=== PATIENT | female | born 1975 | race Caucasian/White ===

== ENCOUNTER 2017-08-06 19:08 | Emergency (ER) | payer OTHER, BC ==
[~2017-08-06] VITALS: Ht 182.9 cm; Wt 181.0 kg
[~2017-08-06 19:08] MED LIST: CLOP75TA35 PO; DULO-31 PO; HYDR200T84 PO; INSU100C10 SQ; LEVE10002 PO; METF500T PO; METO25TA6 PO; NABU500T2 PO; OMEP40CA37 PO; PREG150C PO; TRAZ-146 PO; ZOLP5TAB8 PO
[2017-08-06] MEDS ORDERED: BROM2.5T22 PO (20:38)
[2017-08-06] MEDS ORDERED: MELO-102 PO (20:38)
[2017-08-06] MEDS ORDERED: BROM2.5T18 PO (20:38)
[2017-08-06] MEDS ORDERED: aspirin 81mg tab.chew PO ONE (20:45)
[2017-08-06] MEDS ORDERED: normal saline 1000ML IV soln IVB ONE (20:45)
[2017-08-06] MEDS ORDERED: ondansetron/PF 4mg/2ml inj IV ONE (20:45)
[2017-08-06 21:28] LABS: BASOPHILS % (AUTO) 0.5 % (0-1); EOSINOPHILS # (AUTO) 0.2 X10'3 (0-0.9); HEMATOCRIT 40.1 % (35.0-45.0); HEMOGLOBIN 13.3 g/dl (12.0-16.0); LYMPHOCYTES # (AUTO) 2.7 X10'3 (1.1-4.8); LYMPHOCYTES % (AUTO) 35.5 % (21-51); MEAN CORPUSCULAR HEMOGLOBIN 24.2 PG (27.0-31.0); MEAN CORPUSCULAR HGB CONC 33.2 % (33.0-36.5); MEAN CORPUSCULAR VOLUME 72.8 FL (78-98); MEAN PLATELET VOLUME 8.9 FL (7.4-10.4); MONOCYTES # (AUTO) 0.6 X10'3 (0-0.9); MONOCYTES % (AUTO) 7.2 % (2-12); NEUTROPHILS # (AUTO) 4.2 X10'3 (1.8-7.7); NEUTROPHILS % (AUTO) 54.8 % (42-75); PLATELET COUNT 346 X10'3 (140-440); RED BLOOD COUNT 5.51 X10'6 (4.20-5.60); RED CELL DISTRIBUTION WIDTH 18.8 % (11.5-14.5); WHITE BLOOD COUNT 7.7 X10'3 (4.5-11.0)
[2017-08-06 21:38] LABS: PROTHROMBIN TIME 9.9 SECONDS (9.0-12.0)
[2017-08-06 21:44] LABS: ALANINE AMINOTRANSFERASE 63 U/L (12-78); ALBUMIN 3.8 G/DL (3.4-5.0); ALKALINE PHOSPHATASE 194 IU/L (46-116); ANION GAP 11 (8-16); ASPARTATE AMINO TRANSFERASE 55 U/L (10-37); BILIRUBIN,TOTAL 0.4 MG/DL (0.1-1.0); BLOOD UREA NITROGEN 7 MG/DL (7-18); BUN/CREATININE RATIO 7.7 (6.6-38.0); CALCIUM 9.1 MG/DL (8.5-10.1); CHLORIDE 98 MMOL/L (99-107); CREATININE 0.91 MG/DL (0.40-0.90); GLUCOSE 404 MG/DL (70-104); MAGNESIUM 1.9 MG/DL (1.5-2.4); POTASSIUM 4.4 MMOL/L (3.5-5.1); SODIUM 137 MMOL/L (135-145); TOTAL CARBON DIOXIDE 28.4 MMOL/L (24-32); TOTAL PROTEIN 7.8 G/DL (6.4-8.2); eGFR 67 ML/MIN
[2017-08-06 23:04] VITALS: BP 134/77
== END 2017-08-06 23:05 | disposition home or self-care (01) ==
LOC: ER 19:09
DX: J06.9 Acute upper respiratory infection, unspecified (principal); R07.9 Chest pain, unspecified; R73.9 Hyperglycemia, unspecified; G43.909 Migraine, unspecified, not intractable, without status migrainosus; I10 Essential (primary) hypertension; E66.01 Morbid (severe) obesity due to excess calories; Z99.2 Dependence on renal dialysis; Z88.0 Allergy status to penicillin; Z88.1 Allergy status to other antibiotic agents; Z88.2 Allergy status to sulfonamides; Z88.5 Allergy status to narcotic agent
CPT/HCPCS: 36415; 71046; 80053; 83735; 84484; 85025; 85610; 93005; 96361; 96374; 99285; J2405; J7030

== ENCOUNTER 2017-08-28 18:53 | Emergency (ER) | payer OTHER, BC ==
[~2017-08-28] VITALS: Ht 182.9 cm; Wt 180.9 kg
[~2017-08-28 18:53] MED LIST changes: +BROM2.5T18 PO; +BROM2.5T22 PO; +MELO-102 PO; -NABU500T2 PO
[2017-08-28] MEDS ORDERED: fentaNYL/PF 50MCG/1 ML 2ML syringe IV ONE ×2 (19:10→20:00)
[2017-08-28] MEDS ORDERED: proCHLORperazine 10 MG/2 ml inj IV ONE (19:10)
[2017-08-28] MEDS ORDERED: LORazepam 2 mg/ml vial IV ONE (19:10)
[2017-08-28 19:28] LABS: BASOPHILS # (AUTO) 0.1 X10'3 (0-0.2); BASOPHILS % (AUTO) 0.7 % (0-1); EOSINOPHILS # (AUTO) 0.2 X10'3 (0-0.9); EOSINOPHILS % (AUTO) 2.1 % (0-6); HEMATOCRIT 40.7 % (35.0-45.0); HEMOGLOBIN 13.4 g/dl (12.0-16.0); LYMPHOCYTES # (AUTO) 2.6 X10'3 (1.1-4.8); LYMPHOCYTES % (AUTO) 30.4 % (21-51); MEAN CORPUSCULAR HEMOGLOBIN 23.9 PG (27.0-31.0); MEAN CORPUSCULAR HGB CONC 32.9 % (33.0-36.5); MEAN CORPUSCULAR VOLUME 72.7 FL (78-98); MEAN PLATELET VOLUME 8.9 FL (7.4-10.4); MONOCYTES # (AUTO) 0.5 X10'3 (0-0.9); MONOCYTES % (AUTO) 5.9 % (2-12); NEUTROPHILS # (AUTO) 5.2 X10'3 (1.8-7.7); NEUTROPHILS % (AUTO) 60.9 % (42-75); PLATELET COUNT 329 X10'3 (140-440); RED CELL DISTRIBUTION WIDTH 18.2 % (11.5-14.5); WHITE BLOOD COUNT 8.5 X10'3 (4.5-11.0)
[2017-08-28 19:38] LABS: INR 0.9 INR; PARTIAL THROMBOPLASTIN TIME 25 SECONDS (22-32); PROTHROMBIN TIME 9.8 SECONDS (9.0-12.0)
[2017-08-28] MEDS ORDERED: dexamethasone sod phosphate 10mg/ml inj IM STA (19:45)
[2017-08-28 19:46] LABS: ALANINE AMINOTRANSFERASE 62 U/L (12-78); ALBUMIN 3.3 G/DL (3.4-5.0); ALBUMIN/GLOBULIN RATIO 0.8 (1.1-1.5); ALKALINE PHOSPHATASE 184 IU/L (46-116); ANION GAP 14 (8-16); ASPARTATE AMINO TRANSFERASE 49 U/L (10-37); BILIRUBIN,TOTAL 0.4 MG/DL (0.1-1.0); BLOOD UREA NITROGEN 14 MG/DL (7-18); BUN/CREATININE RATIO 18.4 (6.6-38.0); CALCIUM 8.5 MG/DL (8.5-10.1); CHLORIDE 103 MMOL/L (99-107); CREATININE 0.76 MG/DL (0.40-0.90); GLUCOSE 310 MG/DL (70-104); SODIUM 139 MMOL/L (135-145); TOTAL CARBON DIOXIDE 21.8 MMOL/L (24-32); TOTAL PROTEIN 7.2 G/DL (6.4-8.2); TROPONIN I < 0.04 NG/ML (0.0-0.05); eGFR 83 ML/MIN
[2017-08-28 20:19] VITALS: BP 150/95
== END 2017-08-28 20:43 | disposition home or self-care (01) ==
LOC: ER 18:53
DX: G43.909 Migraine, unspecified, not intractable, without status migrainosus (principal); I10 Essential (primary) hypertension; E11.9 Type 2 diabetes mellitus without complications; Z98.890 Other specified postprocedural states; Z88.5 Allergy status to narcotic agent; Z88.0 Allergy status to penicillin; Z79.4 Long term (current) use of insulin
CPT/HCPCS: 36415; 70450; 71045; 80053; 82948; 84484; 85025; 85610; 85730; 93005; 96372; 96374; 96375; 96376; 99285; J0780; J1100; J2060; J3010

== ENCOUNTER 2017-11-05 22:12 | Emergency (ER) | payer BC, OTHER ==
[~2017-11-05] VITALS: Ht 182.9 cm; Wt 185.0 kg
[2017-11-05] MEDS ORDERED: cloNIDine 0.1 mg tablet PO ONE (23:35)
[2017-11-05 23:42] VITALS: BP 114/79
[2017-11-06] MEDS ORDERED: cloNIDine 0.1 mg tablet PO SCH (08:00)
== END 2017-11-06 00:38 | disposition home or self-care (01) ==
LOC: ER 22:12
DX: I10 Essential (primary) hypertension (principal); R04.0 Epistaxis; G43.909 Migraine, unspecified, not intractable, without status migrainosus; E11.9 Type 2 diabetes mellitus without complications; Z90.49 Acquired absence of other specified parts of digestive tract; Z88.0 Allergy status to penicillin; Z88.2 Allergy status to sulfonamides; Z88.5 Allergy status to narcotic agent; Z88.1 Allergy status to other antibiotic agents; Z79.84 Long term (current) use of oral hypoglycemic drugs; Z79.4 Long term (current) use of insulin; Z86.73 Personal history of transient ischemic attack (TIA), and cerebral infarction without residual deficits; Z99.2 Dependence on renal dialysis
CPT/HCPCS: 99283

== ENCOUNTER 2018-06-10 15:44 | Emergency (ER) | payer BC, OTHER ==
[~2018-06-10] VITALS: Ht 182.9 cm; Wt 190.0 kg
[~2018-06-10 15:44] MED LIST changes: -TRAZ-146 PO; +TRAZ-219 PO
[2018-06-10 15:51] VITALS: BP 145/88
[2018-06-10 16:15] LABS: BASOPHILS # (AUTO) 0.1 X10'3 (0-0.2); BASOPHILS % (AUTO) 0.6 % (0-1); EOSINOPHILS # (AUTO) 0.2 X10'3 (0-0.9); EOSINOPHILS % (AUTO) 2.9 % (0-6); HEMATOCRIT 39.5 % (35.0-45.0); HEMOGLOBIN 12.5 g/dl (12.0-16.0); LYMPHOCYTES # (AUTO) 2.1 X10'3 (1.1-4.8); LYMPHOCYTES % (AUTO) 25.1 % (21-51); MEAN CORPUSCULAR HEMOGLOBIN 22.5 PG (27.0-31.0); MEAN CORPUSCULAR HGB CONC 31.6 % (33.0-36.5); MEAN CORPUSCULAR VOLUME 71.1 FL (78-98); MEAN PLATELET VOLUME 8.5 FL (7.4-10.4); MONOCYTES # (AUTO) 0.5 X10'3 (0-0.9); MONOCYTES % (AUTO) 5.5 % (2-12); NEUTROPHILS # (AUTO) 5.6 X10'3 (1.8-7.7); NEUTROPHILS % (AUTO) 65.9 % (42-75); PLATELET COUNT 367 X10'3 (140-440); RED BLOOD COUNT 5.56 X10'6 (4.20-5.60); RED CELL DISTRIBUTION WIDTH 17.7 % (11.5-14.5); WHITE BLOOD COUNT 8.4 X10'3 (4.5-11.0)
[2018-06-10 16:31] LABS: ALANINE AMINOTRANSFERASE 55 U/L (12-78); ALBUMIN 3.3 G/DL (3.4-5.0); ALBUMIN/GLOBULIN RATIO 0.9 (1.1-1.5); ALKALINE PHOSPHATASE 159 IU/L (46-116); ANION GAP 7 (8-16); ASPARTATE AMINO TRANSFERASE 44 U/L (10-37); BILIRUBIN,TOTAL 0.3 MG/DL (0.1-1.0); BLOOD UREA NITROGEN 10 MG/DL (7-18); BUN/CREATININE RATIO 11.1 (6.6-38.0); CALCIUM 8.6 MG/DL (8.5-10.1); CHLORIDE 98 MMOL/L (99-107); GLUCOSE 418 MG/DL (70-104); POTASSIUM 4.4 MMOL/L (3.5-5.1); SODIUM 135 MMOL/L (135-145); TOTAL CARBON DIOXIDE 30.3 MMOL/L (24-32); TOTAL PROTEIN 7.1 G/DL (6.4-8.2); eGFR 68 ML/MIN
[2018-06-10 16:35] LABS: INR 0.9 INR; PARTIAL THROMBOPLASTIN TIME 24 SECONDS (22-32); PROTHROMBIN TIME 9.6 SECONDS (9.0-12.0)
[2018-06-10] MEDS ORDERED: FLUC150T66 PO (16:48)
[2018-06-10 16:53] LABS: CLARITY,URINE SLIGHTLY CLOUDY (Clear); COLOR,URINE YELLOW (Yellow); GLUCOSE, URINE >=1000 mg/dl (Neg); KETONES,URINE NEGATIVE (Neg); LEUKOCYTE ESTERASE ,URINE SMALL (Neg); NITRITES, URINE NEGATIVE (Neg); OCCULT BLOOD,URINE MODERATE (Neg); PH,URINE 5.5 (4.8-8.0); PROTEIN,URINE NEGATIVE (Neg); UROBILINOGEN,URINE 0.2 E.U/dL (0.2-1.0)
[2018-06-10 16:55] LABS: UA COLLECTION TYPE CLN CATCH MIDSTREAM
[2018-06-10] MEDS ORDERED: normal saline 1000ML IV soln IVB ONE (17:00)
[2018-06-10 17:04] LABS: BACTERIA,URINE 2+ /HPF (Neg); MUCUS STRANDS FEW /LPF (Neg); SQUAMOUS EPITHELIAL CELL,UR MODERATE /LPF (FEW); WBC CLUMPS,URINE MODERATE /HPF (NEGATIVE); WBC,URINE TNTC /HPF (0-4); YEAST FEW /HPF (NEGATIVE)
== END 2018-06-10 17:56 | disposition home or self-care (01) ==
LOC: ER 15:45
DX: B37.3 Candidiasis of vulva and vagina (principal); R10.2 Pelvic and perineal pain; I10 Essential (primary) hypertension; E11.9 Type 2 diabetes mellitus without complications; Z86.73 Personal history of transient ischemic attack (TIA), and cerebral infarction without residual deficits; Z86.69 Personal history of other diseases of the nervous system and sense organs; Z90.49 Acquired absence of other specified parts of digestive tract; Z98.890 Other specified postprocedural states; Z88.0 Allergy status to penicillin; Z88.2 Allergy status to sulfonamides; Z88.5 Allergy status to narcotic agent; Z88.1 Allergy status to other antibiotic agents; Z88.8 Allergy status to other drugs, medicaments and biological substances; Z79.01 Long term (current) use of anticoagulants; Z79.2 Long term (current) use of antibiotics; Z79.899 Other long term (current) drug therapy
CPT/HCPCS: 36415; 71045; 80053; 81001; 83605; 84145; 85025; 85610; 85730; 87040; 87088; 93005; 99284

== ENCOUNTER 2020-04-18 23:14 | Emergency (ER) | payer BC ==
[~2020-04-18] VITALS: Ht 182.9 cm; Wt 197.7 kg
[~2020-04-18 23:14] MED LIST changes: -BROM2.5T22 PO; +BROM2.5T5 PO; +OMEP40CA13 PO; -OMEP40CA37 PO; -TRAZ-219 PO; +TRAZ-256 PO
[2020-04-18] MEDS ORDERED: dexamethasone sod phosphate 10mg/ml inj IV STA (23:52)
[2020-04-18] MEDS ORDERED: ketorolac tromethamine 15mg/ml inj. IV ONE (23:55)
[2020-04-18] MEDS ORDERED: normal saline 1000ML IV soln IVB ONE (23:55)
[2020-04-18] MEDS ORDERED: SUMAtriptan succ. 6 MG/0.5ml vial SQ ONE (23:55)
[2020-04-18] MEDS ORDERED: proCHLORperazine 10 MG/2 ml inj IV ONE (23:55)
[2020-04-19] MEDS ORDERED: PROC5TAB56 PO (00:37)
[2020-04-19 01:31] VITALS: BP 166/93
== END 2020-04-19 01:32 | disposition home or self-care (01) ==
LOC: ER 23:15
DX: G43.909 Migraine, unspecified, not intractable, without status migrainosus (principal); I10 Essential (primary) hypertension; G47.30 Sleep apnea, unspecified; E11.9 Type 2 diabetes mellitus without complications; Z86.73 Personal history of transient ischemic attack (TIA), and cerebral infarction without residual deficits; Z86.69 Personal history of other diseases of the nervous system and sense organs; Z90.89 Acquired absence of other organs; Z90.49 Acquired absence of other specified parts of digestive tract; Z88.0 Allergy status to penicillin; Z88.2 Allergy status to sulfonamides; Z88.5 Allergy status to narcotic agent; Z88.8 Allergy status to other drugs, medicaments and biological substances; Z79.4 Long term (current) use of insulin; Z79.899 Other long term (current) drug therapy
CPT/HCPCS: 96361; 96372; 96374; 96375; 99284; J0780; J1100; J1885; J7030; J3030

== ENCOUNTER 2020-07-30 13:50 | Emergency (ER) | payer OTHER, BC ==
[~2020-07-30] VITALS: Ht 182.9 cm; Wt 195.4 kg
[~2020-07-30 13:50] MED LIST changes: +CLOP75TA34 PO; -CLOP75TA35 PO; +PROC5TAB56 PO
[2020-07-30] MEDS ORDERED: normal saline 1000ML IV soln IVB ONE (14:20)
[2020-07-30] MEDS ORDERED: normal saline 1000ml 1,000 ML IV ONE (14:20)
[2020-07-30] MEDS ORDERED: BAMLANIVIMAB INJECTION 700 MG in normal saline 250ml IV soln 250 ML IV ONE (14:20)
[2020-07-30 15:03] LABS: BASOPHILS % (AUTO) 0.4 % (0-1); EOSINOPHILS # (AUTO) 0.1 X10'3 (0-0.9); EOSINOPHILS % (AUTO) 1.3 % (0-6); HEMATOCRIT 46.1 % (35.0-45.0); HEMOGLOBIN 15.5 g/dl (12.0-16.0); LYMPHOCYTES # (AUTO) 1.4 X10'3 (1.1-4.8); MEAN CORPUSCULAR HEMOGLOBIN 28.5 PG (27.0-31.0); MEAN CORPUSCULAR HGB CONC 33.7 g/dL (33.0-36.5); MEAN CORPUSCULAR VOLUME 84.7 FL (78-98); MEAN PLATELET VOLUME 8.5 FL (7.4-10.4); MONOCYTES # (AUTO) 0.3 X10'3 (0-0.9); MONOCYTES % (AUTO) 7.1 % (2-12); NEUTROPHILS # (AUTO) 2.3 X10'3 (1.8-7.7); NEUTROPHILS % (AUTO) 57.2 % (42-75); PLATELET COUNT 205 X10'3 (140-440); RED BLOOD COUNT 5.44 X10'6 (4.20-5.60); RED CELL DISTRIBUTION WIDTH 14.5 % (11.5-14.5); WHITE BLOOD COUNT 4.1 X10'3 (4.5-11.0)
[2020-07-30 15:16] LABS: D-DIMER 0.23 MG/L FEU (0-0.50); PARTIAL THROMBOPLASTIN TIME 25 SECONDS (22-32)
--- NOTE | 2020-07-30 15:32 | NUR ---
[facility] faxed pt's covid test to [facility]. test is positive. dr trevinotified.
[2020-07-30 15:35] LABS: ALANINE AMINOTRANSFERASE 67 U/L (12-78); ALBUMIN 3.3 G/DL (3.4-5.0); ALBUMIN/GLOBULIN RATIO 0.8 (1.1-1.5); ALKALINE PHOSPHATASE 187 IU/L (46-116); ANION GAP 8 (8-16); ASPARTATE AMINO TRANSFERASE 63 U/L (10-37); BILIRUBIN,TOTAL 0.3 MG/DL (0.1-1.0); BLOOD UREA NITROGEN 10 MG/DL (7-18); BUN/CREATININE RATIO 14.3 (6.6-38.0); CALCIUM 8.3 MG/DL (8.5-10.1); CHLORIDE 99 MMOL/L (99-107); GLUCOSE 266 MG/DL (70-104); POTASSIUM 3.7 MMOL/L (3.5-5.1); SODIUM 139 MMOL/L (135-145); TOTAL CARBON DIOXIDE 31.8 MMOL/L (24-32); TOTAL PROTEIN 7.2 G/DL (6.4-8.2); eGFR 90 ML/MIN
[2020-07-30 15:42] LABS: MAGNESIUM 1.8 MG/DL (1.5-2.4)
--- NOTE | 2020-07-30 16:11 | NUR ---
Per pharmacy, use of bamlanivimab approved to be given to pt by Dr. Bowens, ID.
[2020-07-30] MEDS ORDERED: furosemide 20MG tablet PO ONE (18:40)
[2020-07-30 19:12] VITALS: BP 140/87
== END 2020-07-30 19:28 | disposition home or self-care (01) ==
LOC: ER 13:50
DX: U07.1 COVID-19 (principal); R06.00 Dyspnea, unspecified; R06.02 Shortness of breath; R07.89 Other chest pain; R50.9 Fever, unspecified; G43.909 Migraine, unspecified, not intractable, without status migrainosus; I10 Essential (primary) hypertension; E11.9 Type 2 diabetes mellitus without complications; Z86.73 Personal history of transient ischemic attack (TIA), and cerebral infarction without residual deficits; Z86.69 Personal history of other diseases of the nervous system and sense organs; Z90.89 Acquired absence of other organs; Z88.0 Allergy status to penicillin; Z88.2 Allergy status to sulfonamides; Z88.5 Allergy status to narcotic agent; Z88.6 Allergy status to analgesic agent; Z88.8 Allergy status to other drugs, medicaments and biological substances; Z79.4 Long term (current) use of insulin; Z79.899 Other long term (current) drug therapy
CPT/HCPCS: 36415; 71045; 80053; 83735; 83880; 84145; 84484; 85025; 85379; 85610; 85730; 86140; 93005; 96360; 99291; J7030; J7050; M0239; Q0239; 99285

== ENCOUNTER 2024-12-04 02:19 | Inpatient (IN) | payer OTHER, MEDICARE ==
[~2024-12-04] VITALS: Ht 185.4 cm; Wt 217.0 kg
[~2024-12-04 02:19] MED LIST changes: +ALBU8.5H17 IH; +ARIP5TAB12 PO; +ATOR20TA66 PO; +BELI200A SUBCUT; -BROM2.5T18 PO; -BROM2.5T5 PO; +BUDE10.2 INH; +CHLO118L3 MM; +CHOL10006 PO; +CLOP75TA33 PO; -CLOP75TA34 PO; -DULO-31 PO; +DULO30CA52 PO; +HYDR-3972 PO; +HYDR200T80 PO; -HYDR200T84 PO; -INSU100C10 SQ; +INSU100V49 SQ; -LEVE10002 PO; +LEVE100023 PO; +LORA2TAB96 PO; +LOSA25TA41 PO; -MELO-102 PO; -METF500T PO; +METO100T7 PO; -METO25TA6 PO; +OMEP20CA15 PO; -OMEP40CA13 PO; -PROC5TAB56 PO; +RIVA10TA PO; +SALI45SP PO; +SODI100G DT; +SUMA50TA PO; -TRAZ-256 PO; +ZOLP-679 PO; -ZOLP5TAB8 PO
--- NOTE | 2024-12-04 03:27 | Physician Documentation ---
History of Present Illness ~ Chief Complaint: Flank Pain Stated Complaint: UTI Time Seen by MD: 02:49 [facility] Mode of Arrival: EMS HPI Patient presents to the emergency room with left-sided abdominal pain and left flank pain sent from [facility] for evaluation of possible kidney stone. Pain started early yesterday morning. Pain is sharp in nature comes in waves. Pain has improved since receiving several rounds of pain medication that has now 5/10 compared to 10/10 earlier in the day. Urinalysis was negative for infection. Unfortunately he had they do not have urological services or CT scan that could accommodate patient's habitus therefore sent to our facility for evaluation. No prior incidents of similar symptoms Medication Reconciliation Allergies: Coded Allergies: Penicillins (Unverified Allergy, Unknown, 04/18/20) Sulfa (Sulfonamide Antibiotics) (Unverified Allergy, Unknown, 04/18/20) acetaminophen (Unverified Allergy, Unknown, 04/18/20) codeine (Unverified Allergy, Unknown, 04/18/20) erythromycin base (Unverified Allergy, Unknown, 04/18/20) morphine (Unverified Allergy, Unknown, "continuously throw up", 04/18/20) oxycodone (Unverified Allergy, Unknown, "continuously throw up", 06/06/16) propoxyphene napsylate (Unverified Allergy, Unknown, 08/10/14) Scheduled Atorvastatin Calcium (Atorvastatin Calcium), 1 TAB PO DAILY, (Reported) Azathioprine (Imuran), 1.5 TAB PO DAILY, (Reported) Belimumab (Benlysta), 1 SYR SUBCUT Q7D, (Reported) Buspirone HCl (Buspirone HCl), 1 TAB PO BID, (Reported) Cholecalciferol (Vitamin D), 1 CAP PO DAILY, (Reported) Clopidogrel Bisulfate (Clopidogrel), 1 TAB PO DAILY, (Reported) Duloxetine HCl (Duloxetine HCl), 2 CAP PO DAILY, (Reported) Gabapentin (Gabapentin), 3 CAP PO TID, (Reported) Hydroxychloroquine Sulfate (Plaquenil), 1 TAB PO Q12H, (Reported) Insulin Aspart (Insulin Aspart), 60 UNIT SQ AC, (Reported) Losartan Potassium (Losartan Potassium), 1 TAB PO DAILY, (Reported) Metformin HCl (Metformin HCl), 2 TAB PO Q12H, (Reported) Metoprolol Succinate* (Toprol Xl*), 1 TAB PO DAILY, (Reported) Omeprazole (Omeprazole), 2 CAP PO DAILY, (Reported) Quetiapine Fumarate* (Seroquel*), 1 TAB PO HS, (Reported) Scheduled PRN Albuterol Sulfate (Proair Hfa), 2 PUFFS IH Q6H PRN for SOB or wheezing, (Reported) Hydrocodone Bit/Acetaminophen (Hydrocodon-Acetaminophn 10-325 tablet), 1 TAB PO TID PRN for severe pain (7-10), (Reported) Sumatriptan Succinate* (Imitrex*), 1 TAB PO BID PRN for headache, (Reported) [concentreghuminsulin], 300 UNIT SQ TID PRN for Per Protocol, (Reported) [reg [id number]], 300 UNIT SQ TID PRN for Per Protocol, (Reported) Discontinued Medications Aripiprazole* (Abilify*), 1 TAB PO DAILY, (Reported) Discontinued Reason: patient no longer taking Budesonide/Formoterol Fumarate (Symbicort 160-4.5 Mcg Inhaler), 2 PUFFS INH Q12H, (Reported) Discontinued Reason: patient no longer taking Chlorhexidine Gluconate (Chlorhexidine Gluconate), 15 ML MM BID, (Reported) Discontinued Reason: patient no longer taking Duloxetine HCl (Duloxetine HCl), 3 CAP PO DAILY, (Reported) Discontinued Reason: Other Insulin Lispro (Insulin Lispro), 1 UNIT SQ SLIDING SCALE, (Reported) Discontinued Reason: patient no longer taking Levetiracetam (Levetiracetam), 1 TAB PO Q12H, (Reported) Discontinued Reason: patient no longer taking Lorazepam (Ativan), 1 TAB PO DAILY PRN for for anxiety/agitation, (Reported) Discontinued Reason: patient no longer taking Pregabalin (Lyrica), 1 CAP PO TID, (Reported) Discontinued Reason: patient no longer taking Rivaroxaban (Xarelto), 1 TAB PO DAILY Discontinued Reason: patient no longer taking Saliva Stimulant Agents Comb.3 (Biotene Moisturizing Mouth), 3 SPRAYS PO QID PRN for dry mouth, (Reported) Discontinued Reason: patient no longer taking Sodium Fluoride (Prevident 5000), 1 STRIP DT DAILY, (Reported) Discontinued Reason: patient no longer taking Zolpidem Tartrate (Ambien), 1 TAB PO HS PRN for sleep, (Reported) Discontinued Reason: patient no longer taking Past Medical History Past Medical History: CVA/TIA/Stroke, Headache, Migraine, Seizures, Hypertension, Sleep Apnea, *GI/HEPATOBILIARY*, Dialysis, Diabetes Past Surgical History: appendectomy, tonsillectomy Patient History: Patient reports no known family medical history. Alcohol Use: None Drug Use: none Lives with: Spouse Lives In: Home Occupation: employed Review of Systems ROS All review of systems negative except as per HPI Physical Exam Vital Signs: Temperature: 98.2, Source: Oral, Heart Rate: 78, Respiratory Rate: 19, BP: 161/88, Pulse Oximetry: 94, Weight: 217.000 Physical Exam General: Patient is awake, alert, oriented x4 in no acute distress, obese Head: Normocephalic and atraumatic. Eyes: Conjunctival normal. EOMI. PERRL. ENT: Mucous membranes moist. Neck: Supple, trachea is midline. Chest: Clear to auscultation bilaterally without rales, rhonchi, or wheezes. There is no accessory muscle use or retractions. Cardiac: RRR without murmurs, gallops, or rubs. Abd: Soft, nondistended, positive tenderness to palpation to right abdomen and left flank Progress Results/Orders Results/Orders Orders - VAUGHN LOPEZ MD Ct Abdomen Pelvis (12/04/24 04:06) Page Hospitalist (12/04/24 06:01) Fill Out Med Reconciliation (12/04/24 06:01) Completed Orders - VAUGHN LOPEZ MD Ct Abdomen Pelvis (12/04/24 04:06) Fentanyl/Pf (Fentanyl 0.05 Mg/Ml Syringe (12/04/24 03:30) Cbc/Diff (12/04/24 03:28) BMP (12/04/24 03:28) LA (12/04/24 03:28) Tamsulosin Capsule (Flomax Capsule) (12/04/24 04:40) Hgb A1c (12/04/24 05:15) Vital Signs 12/04/24 12/04/24 12/04/24 12/04/24 02:26 02:34 03:40 05:32 Temp 98.2 Pulse 81 78 84 Resp 16 19 15 19 B/P (MAP) 161/88 161/88 (112) 132/61 (84) Pulse Ox 95 94 96 12/04/24 12/04/24 06:35 08:11 Temp 98.2 Pulse 90 Resp 18 18 B/P (MAP) 141/79 (99) Pulse Ox 98 Laboratory Tests Test 12/04/24 05:15 White Blood Count 9.7 Red Blood Count 4.74 Hemoglobin 11.8 L Hematocrit 36.8 Mean Corpuscular Volume 77.5 L Mean Corpuscular Hemoglobin 24.8 L Mean Corpuscular Hemoglobin Concent 32.0 L Red Cell Distribution Width 16.6 H Platelet Count 209 Mean Platelet Volume 8.8 Neutrophils (%) (Auto) 66.0 Lymphocytes (%) (Auto) 21.4 Monocytes (%) (Auto) 10.6 Eosinophils (%) (Auto) 1.5 Basophils (%) (Auto) 0.5 Neutrophils # (Auto) 6.4 Lymphocytes # (Auto) 2.1 Monocytes # (Auto) 1.0 H Eosinophils # (Auto) 0.1 Basophils # (Auto) 0.1 CBC Comment Sodium Level 146 H Potassium Level 3.4 L Chloride Level 106 Carbon Dioxide Level 31.3 Anion Gap 9 Blood Urea Nitrogen 7 Creatinine 0.81 Estimated GFR/1.73 m2 75 BUN/Creatinine Ratio 8.6 L Glucose Level 69 L Hemoglobin A1c 8.7 H Lactic Acid Level 1.7 Calcium Level 9.0 Albumin 3.5 Chemistry Comments Medical Decision Making Findings Patient continues to have significant pain Addendum I received sign-out on this patient at shift change. Briefly the patient was transferred here for abdominal imaging. CT scan shows a kidney stone. Laboratory testing is otherwise unremarkable. The patient has intractable pain. She will be admitted to the hospitalist service for further care. Consult: I spoke to the internal medicine service, for admission in the hospital Lucho Parish MD Departure Impression: Primary Impression: Renal colic Additional Impression: Flank pain Referrals: NO PRIMARY CARE PROVIDER (PCP) Signature Scribe Signature: na Attestation: The note accurately reflects work and decisions made by me.Vaughn Lopez MD 12/05/24 00:26 VAUGHN Meade MD Dec 04, 2024 03:27 LUCHO PARISH MD Dec 04, 2024 19:04
[2024-12-04] MEDS: fentaNYL/PF 50MCG/1 ML 2ML syringe IV ONE (03:40)
--- NOTE | 2024-12-04 04:38 | RADIOLOGY REPORT ---
Exam: CT CT ABDOMEN PELVIS History: Flank pain Comparison Study: None Technique: Multidetector spiral CT of the abdomen and pelvis was performed from lung bases to pubic s ymphysis. Imaging was performed without intravenous contrast. Coronal and sagittal multiplanar reform ats were obtained from the axial data set by the technologist. Radiation Dose : 1. Abdomen/Pelvis: CTDIvol 36.9 mGy, DLP 2006.9 mGy*cm. Findings: Evaluation of vasculature and solid organs is limited due to lack of intravenous contrast use. Lung Bases: Lung bases are clear. Visualized portions of the heart and pericardium are unremarkable. Liver: The liver is normal in size. Nodular contour of the liver. Gallbladder and Biliary Tree: The gallbladder is unremarkable. No intrahepatic or extrahepatic biliar y ductal dilatation. Spleen: Unremarkable Pancreas: The pancreas is grossly unremarkable. Adrenal Glands: Unremarkable Kidneys: Mild left hydroureteronephrosis due to 3 mm proximal obstructive left ureteral calculus. No right intrarenal calculi. GI tract: The stomach is grossly normal in appearance. No evidence of small bowel wall thickening or abnormal dilatation to suggest bowel obstruction. Sigmoid colon diverticulosis without acute divertic ulitis. The appendix is not visualized and there are serpiginous radiodensities of the base of the ce cum suggesting prior appendectomy. Peritoneum/mesentery/retroperitoneum. No evidence of free intraperitoneal air. No ascites. No evidenc e of suspicious lymphadenopathy. Abdominal Wall: Unremarkable. Vasculature: The visualized abdominal aorta is normal in size and caliber. Evaluation of abdominal a nd pelvic vessels is limited due to lack of intravenous contrast. Urinary Bladder: Grossly unremarkable for degree of distention. Pelvic Organs: Unremarkable Musculoskeletal: No aggressive focal bony lesions, acute fractures or dislocation. Multilevel lumbar spondylosis. Soft tissues: Lower pelvic ventral abdominal hernia containing fat. IMPRESSION: 1. Mild left hydroureteronephrosis due to 3 mm proximal left ureteral obstructive calculus. 2. Nodular contour of the liver suspicious for cirrhosis.
[2024-12-04] MEDS: tamsulosin 0.4mg capsule PO ONE (04:40)
[2024-12-04 05:38] LABS: ALBUMIN 3.5 G/DL (3.4-5.0); ANION GAP 9 (8-16); BASOPHILS # (AUTO) 0.1 X10'3 (0-0.2); BASOPHILS % (AUTO) 0.5 % (0-1); BLOOD UREA NITROGEN 7 MG/DL (7-18); BUN/CREATININE RATIO 8.6 (10.0-20.0); CHLORIDE 106 MMOL/L (99-107); CREATININE 0.81 MG/DL (0.40-0.90); EOSINOPHILS # (AUTO) 0.1 X10'3 (0-0.9); EOSINOPHILS % (AUTO) 1.5 % (0-6); GLUCOSE 69 MG/DL (70-104); HEMATOCRIT 36.8 % (35.0-45.0); HEMOGLOBIN 11.8 g/dl (12.0-16.0); LYMPHOCYTES # (AUTO) 2.1 X10'3 (1.1-4.8); LYMPHOCYTES % (AUTO) 21.4 % (21-51); MEAN CORPUSCULAR HEMOGLOBIN 24.8 PG (27.0-31.0); MEAN CORPUSCULAR VOLUME 77.5 FL (78-98); MEAN PLATELET VOLUME 8.8 FL (7.4-10.4); MONOCYTES % (AUTO) 10.6 % (2-12); NEUTROPHILS # (AUTO) 6.4 X10'3 (1.8-7.7); PLATELET COUNT 209 X10'3 (140-440); POTASSIUM 3.4 MMOL/L (3.5-5.1); RED BLOOD COUNT 4.74 X10'6 (4.20-5.60); RED CELL DISTRIBUTION WIDTH 16.6 % (11.5-14.5); SODIUM 146 MMOL/L (135-145); TOTAL CARBON DIOXIDE 31.3 MMOL/L (24-32); WHITE BLOOD COUNT 9.7 X10'3 (4.5-11.0); eCRCL 99 ML/MIN; eGFR 75 ML/MIN
[2024-12-04] MEDS ORDERED: magnesium sulf-water 4G/100mL 100 ML IV PRN (08:10)
[2024-12-04] MEDS ORDERED: magnesium sulf-water 2g/50mL 50 ML IV PRN (08:10)
[2024-12-04] MEDS ORDERED: mag hydrox/Alum hydrox/simeth 30ml oral suspension PO PRN (08:10)
[2024-12-04] MEDS ORDERED: glucagon, human recombinant 1mg kit SUBCUT PRN (08:10)
[2024-12-04] MEDS ORDERED: acetaminophen 325mg tablet PO PRN (08:10)
[2024-12-04] MEDS ORDERED: DEXTROSE 15 GM of carb/4 tabs (each vial/BOTTLE has 4 tablets) PO PRN ×2 (08:10)
[2024-12-04] MEDS ORDERED: HYDROmorphone/PF 0.2 MG/ML SYRINGE IV PRN (08:10)
[2024-12-04] MEDS ORDERED: potassium Cl 40MEQ/1/2NS 520ml 520 ML IV PRN (08:10)
[2024-12-04] MEDS ORDERED: dextrose 50%-water 50ml dispensing syringe IV PRN ×2 (08:10)
[2024-12-04] MEDS ORDERED: potassium Cl 20 mEq SR tablet PO PRN (08:10)
[2024-12-04] MEDS ORDERED: magnesium hydroxide 30ml (MOM) UD suspension PO PRN (08:10)
[2024-12-04] MEDS: ondansetron/PF 4mg/2ml inj IV ONE (08:10)
[2024-12-04] MEDS: HYDROmorphone 1 mg/ml syringe IV ONE (08:11)
[2024-12-04 09:27] LABS: HEMOGLOBIN A1C 8.7 % (4.5-6.2)
[2024-12-04] MEDS: CefTRIAXone/D5W-Rocephin 1gm 50 ML IV ONE (09:28)
[2024-12-04] MEDS: normal saline 1000ml 1,000 ML IV SCH (09:28)
--- NOTE | 2024-12-04 09:50 | HISTORY AND PHYSICAL ---
History & Physical Providers to CC ~ History of Present Illness Reason for Admit\\Complaint: Intractable left flank pain with kidney stone and mild hydronephrosis History of Present Illness This is a 49-year-old female who was transferred from [facility] for further evaluation of left flank pain the patient has a BMI of 63.1 and did not fit into their CT scanner the patient presents to ED with hematuria x2 days and has had intermittent fevers with a T-max of 101.0. On CT scan is discovered that the patient has mild left hydroureter with a 3 mm proximal left ureteral stone. The patient currently has a normal white blood cell count urinalysis with a culture and sensitivity is ordered as well as Flomax and IV Rocephin as well as IV Dilaudid for pain management filter urine for stone analysis. Allergies: Coded Allergies: Penicillins (Unverified Allergy, Unknown, 04/18/20) Sulfa (Sulfonamide Antibiotics) (Unverified Allergy, Unknown, 04/18/20) acetaminophen (Unverified Allergy, Unknown, 04/18/20) codeine (Unverified Allergy, Unknown, 04/18/20) erythromycin base (Unverified Allergy, Unknown, 04/18/20) morphine (Unverified Allergy, Unknown, "continuously throw up", 04/18/20) oxycodone (Unverified Allergy, Unknown, "continuously throw up", 06/06/16) propoxyphene napsylate (Unverified Allergy, Unknown, 08/10/14) Home Medications Home Medications Active Xarelto (Rivaroxaban) 10 Mg Tablet 1 Tab PO DAILY Reported Ambien (Zolpidem Tartrate) 10 Mg Tablet 1 Tab PO HS PRN 30 Days Imitrex* (Sumatriptan Succinate) 50 Mg Tablet 1 Tab PO BID PRN give 1 tablet at onset of headache. May repeat in 2 hours as needed. Do not exceed 200mg/day total. Prevident 5000 (Sodium Fluoride) 100 Ml Gel..ml. 1 Strip DT DAILY Lyrica (Pregabalin) 150 Mg Capsule 1 Cap PO TID 30 Days Omeprazole 20 Mg Capsule.dr 2 Cap PO DAILY 30 Days Toprol Xl* (Metoprolol Succinate) 100 Mg Tab.sr.24h 1 Tab PO DAILY 30 Days Losartan Potassium 25 Mg Tablet 1 Tab PO DAILY 30 Days Ativan (Lorazepam) 2 Mg Tablet 1 Tab PO DAILY PRN 30 Days Levetiracetam 1,000 Mg Tablet 1 Tab PO Q12H 30 Days Insulin Lispro 100 Unit/1 Ml Vial 1 Unit SQ SLIDING SCALE Plaquenil (Hydroxychloroquine Sulfate) 200 Mg Tablet 0.5 Tab PO Q12H 30 Days Hydrocodon-Acetaminophn 10-325 (Hydrocodone Bit/Acetaminophen) 1 Each Tablet 1 Tab PO TID PRN 30 Days Duloxetine HCl 30 Mg Capsule.dr 3 Cap PO DAILY 30 Days Clopidogrel (Clopidogrel Bisulfate) 75 Mg Tablet 1 Tab PO DAILY 30 Days Vitamin D (Cholecalciferol) 1,000 Unit Capsule 1 Cap PO DAILY 30 Days Chlorhexidine Gluconate 118 Ml Liquid 15 Ml MM BID 2 Days Symbicort 160-4.5 Mcg Inhaler (Budesonide/Formoterol Fumarate) 10.2 Gm Hfa.aer.ad 2 Puffs INH Q12H Benlysta (Belimumab) 200 Mg/1 Ml Auto.injct 1 Syr SUBCUT Q7D 28 Days Atorvastatin Calcium 20 Mg Tablet 1 Tab PO DAILY 30 Days Biotene Moisturizing Mouth (Saliva Stimulant Agents Comb.3) 44.3 Ml Selma 3 Sprays PO QID PRN Abilify* (Aripiprazole) 5 Mg Tablet 1 Tab PO DAILY 30 Days Proair Hfa (Albuterol Sulfate) 1 Puff Inh 2 Puffs IH Q6H PRN Past Medical History Past Medical History Diabetes mellitus oab-sjajzxa-agixloham, lupus, hyperlipidemia, fibromyalgia, diverticulitis Past Surgical History Surgical History Comment Appendectomy, hysterectomy with bilateral salpingo-oophorectomy Family History Family History: FH: diabetes mellitus FATHER MOTHER Past Social History Social History Comment Patient denes history of smoking/ drinking alcohol nor any illicit drug use Full Code Status ROS ROS Except for positives in the HPI the rest of the 14 point review systems is negative Exam Vitals: Vital Signs Date Time Temp Pulse Resp B/P (MAP) Pulse Ox O2 Delivery O2 Flow Rate FiO2 12/04/24 08:56 98.2 100 18 146/65 (92) 91 General: Gen. No acute distress alert and oriented 4, morbidly obese Lungs clear to ascultation bilaterally, no wheezes rales or rhonchi appreciated Heart normal sinus rhythm no murmurs rubs or clicks noted Abdomen soft nontender bowel sounds are normoactive Lower extremities no clubbing cyanosis, nor edema appreciated bilaterally Diagnostic Data Last Recorded Lab Results: 12/04/24 0515 12/04/24 0515 Problems: (1) Hydronephrosis with urinary obstruction due to renal calculus Additional Plan # intractable left sided abdominal and flank pain Secondary to renal colic CT scan shows 3 mm obstructive calculus in the left proximal ureter with mild hydronephrosis UA with culture and sensitivity IV Rocephin Filter all urine for stone analysis IV Dilaudid for pain management # kbx-wgjdmxw-ldxnrobav diabetes mellitus On the hyper and hypoglycemic protocol # lupus Awaiting med reconciliation # hyperlipidemia Awaiting med reconciliation # mild microcytic anemia Iron studies # hypokalemia Potassium replacement protocol # DVT prophylaxis SCDs and SQ Lovenox I spent a total of 17 minutes on reviewing various resuscitative measures/ ACP with the patient at the time of admission. The patient has decided on full code status Date of Service: Dec 04, 2024 Billing Provider: HORACIO CANALES DO Common Visit Codes: [id number] INP/OBS CARE (HIGH) Secondary Visit Codes: [id number] CARE PLAN 30 MINUTES HORACIO CANALES DO Dec 04, 2024 09:50
[2024-12-04 11:00] LABS: BILIRUBIN,URINE NEGATIVE (Neg); CLARITY,URINE SLIGHTLY CLOUDY (Clear); COLOR,URINE YELLOW (Yellow); GLUCOSE, URINE NEGATIVE (Neg); KETONES,URINE NEGATIVE (Neg); LEUKOCYTE ESTERASE ,URINE NEGATIVE (Neg); NITRITES, URINE NEGATIVE (Neg); OCCULT BLOOD,URINE MODERATE (Neg); PROTEIN,URINE NEGATIVE (Neg)
[2024-12-04 11:06] LABS: UA COLLECTION TYPE CLN CATCH MIDSTREAM
[2024-12-04] MEDS ORDERED: QUET-1 PO (11:20)
[2024-12-04] MEDS ORDERED: [UNRECOGNIZED DRUG - OTHER] SQ (11:20)
[2024-12-04] MEDS ORDERED: GABA-530 PO (11:20)
[2024-12-04] MEDS ORDERED: METF-1203 PO (11:20)
[2024-12-04] MEDS ORDERED: [UNRECOGNIZED DRUG - OTHER] SQ (11:20)
[2024-12-04] MEDS ORDERED: DULO60CA65 PO (11:20)
[2024-12-04] MEDS ORDERED: AZAT50TA18 PO (11:20)
[2024-12-04] MEDS ORDERED: INSU100V46 SQ (11:20)
[2024-12-04] MEDS ORDERED: BUSP15TA7 PO (11:20)
[2024-12-04 11:30] VITALS: BP 152/83; PULSE 87; RESP 16; TEMP 98.7; O2SAT 97
[2024-12-04 11:34] LABS: BACTERIA,URINE 1+ /HPF (Neg); RBC,URINE 50-100 /HPF (0-2); RENAL CELLS, URINE FEW /HPF; SQUAMOUS EPITHELIAL CELL,UR MODERATE /LPF (FEW); TRANSITIONAL EPI CELLS,URINE FEW /HPF
[2024-12-04] MEDS: potassium Cl 20 mEq SR tablet PO PRN (12:09)
[2024-12-04] MEDS: INSULIN LISPRO 100 UNIT/ML INSULN.PEN MULTI-DOSE SQ SCH (12:25)
--- NOTE | 2024-12-04 13:24 | RADIOLOGY REPORT ---
EXAM: DI CHEST,SINGLE VIEW HISTORY: chest pain TECHNIQUE: 1 view of the chest COMPARISON: CHEST,SINGLE VIEW on DOS: 08/07/20 FINDINGS: LUNGS: Low lung volumes with crowding of the bronchovascular markings. Central pulmonary v ascular congestion. No pleural effusion, consolidation, or pneumothorax MEDIASTINUM: Unremarkable BONES: No acute osseous abnormality OTHER: None IMPRESSION: 1. Low lung volumes with crowding of the bronchovascular markings. 2. Overall, a degree of pulmonary vascular congestion. 3. No significant change from prior exam.
--- NOTE | 2024-12-04 13:52 | ELECTROCARDIOGRAPH REPORT ---
[facility] Test Date: 2024-12-04 Test Time: 12:41:21 Pat Name: ROBERT BAILEY Department: ORTHO/NEURO Room: ORTHO [facility] Gender: F Cashier Checker: : 1975 Requested By: HORACIO CANALES Order Number: [id number] Reading MD: Dr. CHINMAY Licea Measurements Intervals [place] Rate: 89 P: 42 CO: 172 QRS: -1 QRSD: 87 T: 49 QT: 384 QTc: 468 Interpretive Statements Sinus rhythm Baseline wander in lead(s) II,V1,V2,V3 Electronically Signed On 12-06-2024 19:14:[address] CHINMAY Licea Please click the below link to view image of tracing.
[2024-12-04] MEDS: HYDROmorphone inj. 0.5 MG/0.5 ML DISP.SYRIN IV PRN (16:06)
[2024-12-04] MEDS: pantoprazole 40mg Tablet.DR PO SCH (17:31)
[2024-12-04 18:00] VITALS: BP 184/89; PULSE 89; RESP 18; TEMP 98.2; O2SAT 97
[2024-12-04 19:30] VITALS: BP 157/77
[2024-12-04] MEDS: K and/or MAG REPLACEMENT MC SCH (20:00)
[2024-12-04] MEDS: enoxaparin 40mg/0.4ml syringe SQ SCH (20:20)
[2024-12-04] MEDS: tamsulosin 0.4mg capsule PO SCH (20:21)
[2024-12-04] MEDS: docusate sod 100mg capsule PO SCH (20:34)
[2024-12-04] MEDS: ondansetron/PF 4mg/2ml inj IV PRN (20:34)
[2024-12-04] MEDS: insulin glargine (Lantus) pen - multi-dose SQ SCH (20:42)
[2024-12-04 22:23] VITALS: O2SAT 100
[2024-12-04 22:25] VITALS: BP 143/98; PULSE 95; RESP 16; TEMP 98; O2SAT 99
[2024-12-04 23:33] VITALS: PULSE 104; RESP 18; O2SAT 95
[2024-12-05 05:05] LABS: BASOPHILS % (AUTO) 0.4 % (0-1); EOSINOPHILS # (AUTO) 0.1 X10'3 (0-0.9); EOSINOPHILS % (AUTO) 0.6 % (0-6); HEMATOCRIT 33.1 % (35.0-45.0); HEMOGLOBIN 10.6 g/dl (12.0-16.0); LYMPHOCYTES # (AUTO) 1.4 X10'3 (1.1-4.8); LYMPHOCYTES % (AUTO) 17.3 % (21-51); MEAN CORPUSCULAR HEMOGLOBIN 24.8 PG (27.0-31.0); MEAN CORPUSCULAR HGB CONC 32.1 g/dL (33.0-36.5); MEAN CORPUSCULAR VOLUME 77.1 FL (78-98); MEAN PLATELET VOLUME 8.2 FL (7.4-10.4); MONOCYTES % (AUTO) 11.8 % (2-12); NEUTROPHILS # (AUTO) 5.8 X10'3 (1.8-7.7); NEUTROPHILS % (AUTO) 69.9 % (42-75); PLATELET COUNT 153 X10'3 (140-440); RED CELL DISTRIBUTION WIDTH 16.5 % (11.5-14.5); WHITE BLOOD COUNT 8.3 X10'3 (4.5-11.0)
[2024-12-05 05:32] LABS: ALANINE AMINOTRANSFERASE 30 U/L (12-78); ALBUMIN 3.2 G/DL (3.4-5.0); ALKALINE PHOSPHATASE 131 IU/L (46-116); ANION GAP 6 (8-16); ASPARTATE AMINO TRANSFERASE 27 U/L (10-37); BILIRUBIN,TOTAL 0.9 MG/DL (0.1-1.0); BLOOD UREA NITROGEN 6 MG/DL (7-18); BUN/CREATININE RATIO 7.6 (10.0-20.0); CALCIUM 8.4 MG/DL (8.5-10.1); CHLORIDE 101 MMOL/L (99-107); CREATININE 0.79 MG/DL (0.40-0.90); GLUCOSE 285 MG/DL (70-104); MAGNESIUM 1.7 MG/DL (1.5-2.4); POTASSIUM 3.9 MMOL/L (3.5-5.1); SODIUM 137 MMOL/L (135-145); TOTAL PROTEIN 6.4 G/DL (6.4-8.2); eCRCL 101 ML/MIN; eGFR 77 ML/MIN
[2024-12-05 06:00] VITALS: BP 162/88; PULSE 117; RESP 16; TEMP 97.7; O2SAT 94
[2024-12-05] MEDS: CefTRIAXone/D5W-Rocephin 1gm 50 ML IV SCH (07:10)
--- NOTE | 2024-12-05 08:14 | PROGRESS NOTE ---
Daily Progress Note Providers to CC ~ Antibiotic Timeout Antibiotic Ordered?: Yes Objective Vital Signs Date Time Temp Pulse Resp B/P (MAP) Pulse Ox O2 Delivery O2 Flow Rate FiO2 12/05/24 07:09 16 12/05/24 06:00 97.7 117 162/88 (112) 94 Bi-pap/CPAP 12/04/24 23:33 5 40 Result Diagram: 12/05/2445012/05/24450 Problem\Assessment\Plan Problems/Diagnosis: (1) Hydronephrosis with urinary obstruction due to renal calculus 1) Hydronephrosis with urinary obstruction due to renal calculus Additional Plan # intractable left sided abdominal and flank pain Secondary to renal colic CT scan shows 3 mm obstructive calculus in the left proximal ureter with mild hydronephrosis UA with culture and sensitivity negative so far IV Rocephin Filter all urine for stone analysis IV Dilaudid for pain management # nri-unxiwiv-dmtyrhmfa diabetes mellitus out of control we will increase the Lantus from 10-20 and increase the insulin sliding scale from moderate to severe # hypertension out of control maybe secondary to pain monitor # lupus Awaiting med reconciliation # hyperlipidemia Awaiting med reconciliation # mild microcytic anemia Iron studies # hypokalemia Potassium replacement protocol # DVT prophylaxis SCDs and SQ Lovenox Date of Service: Dec 05, 2024 Billing Provider: MICK SINGH MD Common Visit Codes: [id number] INP/OBS CARE(HIGH) MICK SINGH MD Dec 05, 2024 08:14
[2024-12-05 10:00] VITALS: BP 129/70; PULSE 95; RESP 16; O2SAT 96
[2024-12-05] MEDS: INSULIN LISPRO 100 UNIT/ML INSULN.PEN MULTI-DOSE SQ SCH (12:32)
[2024-12-05] MEDS ORDERED: CIPR-259 PO (14:51)
[2024-12-05] MEDS ORDERED: tamsulosin capsule PO (14:51)
[2024-12-05] MEDS ORDERED: HYDROcodone/acetaminophen 10/325mg tab PO PRN (17:45)
[2024-12-05] MEDS ORDERED: SUMAtriptan 25 MG tablet PO PRN (17:45)
[2024-12-05] MEDS ORDERED: albuterol 2.5 MG/3 ML nebule NEB PRN (17:45)
--- NOTE | 2024-12-05 17:47 | DISCHARGE SUMMARY ---
Discharge Summary Providers to CC ~ Discharge Summary Admission Diagnosis: Renal colic/ kidney stone Hospital Course DATE OF ADMISSION: 12/04/2024 DATE OF DISCHARGE: 12/06/2024 Discharge Diagnosis\Comment: Nephrolithiasis morbid obesity lupus UTI Operations\Procedures: None Consultants: Dr. Louise Complications: None Condition on DC: Stable New Medications: Ciprofloxacin HCl (Cipro) 500 Mg Tablet 1 TAB PO Q12H for 7 Days, #14 TAB [tamsulosin capsule] () 0.4 MG CAP 0.4 MG PO HS for 30 Days, #30 Continued Medications: Albuterol Sulfate (Proair Hfa) 1 Puff Inh 2 PUFFS IH Q6H PRN for SOB or wheezing, #1 INHALER Atorvastatin Calcium (Atorvastatin Calcium) 20 Mg Tablet 1 TAB PO DAILY for 30 Days, #30 TAB Azathioprine (Imuran) 50 Mg Tablet 1.5 TAB PO DAILY, TAB 0 Refills Belimumab (Benlysta) 200 Mg/1 Ml Auto.injct 1 SYR SUBCUT Q7D for 28 Days, #4 SYR 0 Refills Buspirone HCl (Buspirone HCl) 15 Mg Tablet 1 TAB PO BID, TAB 0 Refills Cholecalciferol (Vitamin D) 1,000 Unit Capsule 1 CAP PO DAILY for 30 Days, #30 CAP 0 Refills Clopidogrel Bisulfate (Clopidogrel) 75 Mg Tablet 1 TAB PO DAILY for 30 Days, #30 TAB [concentreghuminsulin] () 300 UNIT SQ TID PRN for Per Protocol Duloxetine HCl (Duloxetine HCl) 60 Mg Capsule.dr 2 CAP PO DAILY, CAP 0 Refills Gabapentin (Gabapentin) 100 Mg Capsule 3 CAP PO TID, CAP 0 Refills Hydrocodone Bit/Acetaminophen (Hydrocodon-Acetaminophn 10-325 tablet) 1 Each Tablet 1 TAB PO TID PRN for severe pain (7-10) for 30 Days, #90 TAB Hydroxychloroquine Sulfate (Plaquenil) 200 Mg Tablet 1 TAB PO Q12H for 30 Days, #60 TAB Insulin Aspart (Insulin Aspart) 100 Unit/Ml Vial 60 UNIT SQ AC Losartan Potassium (Losartan Potassium) 25 Mg Tablet 1 TAB PO DAILY for 30 Days, #30 TAB Metformin HCl (Metformin HCl) 500 Mg Tablet 2 TAB PO Q12H, TAB Metoprolol Succinate* (Toprol Xl*) 100 Mg Tab.sr.24h 1 TAB PO DAILY for 30 Days, #30 TAB Omeprazole (Omeprazole) 20 Mg Capsule.dr 2 CAP PO DAILY for 30 Days, #30 CAP Quetiapine Fumarate* (Seroquel*) 100 Mg Tablet 1 TAB PO HS, TAB [reg [id number]] () 300 UNIT SQ TID PRN for Per Protocol Sumatriptan Succinate* (Imitrex*) 50 Mg Tablet 1 TAB PO BID PRN for headache, TAB give 1 tablet at onset of headache. May repeat in 2 hours as needed. Do not exceed 200mg/day total. Discharge Summary: History of Present Illness This is a 49-year-old female who was transferred from [facility] for further evaluation of left flank pain the patient has a BMI of 63.1 and did not fit into their CT scanner the patient presents to ED with hematuria x2 days and has had intermittent fevers with a T-max of 101.0. On CT scan is discovered that the patient has mild left hydroureter with a 3 mm proximal left ureteral stone. The patient currently has a normal white blood cell count urinalysis with a culture and sensitivity is ordered as well as Flomax and IV Rocephin as well as IV Dilaudid for pain management filter urine for stone analysis. PHYSICAL EXAM PATIENT IS ALERT AND ORIENTED X3 NO ACUTE DISTRESS LYING DOWN COMFORTABLY SPEAKING IN FULL SENTENCES HEENT normocephalic nontraumatic head CVS first and second heart sounds are regular rate rhythm no murmurs gallops or rubs Respiratory system is clear to auscultate bilaterally Abdomen is soft obese bowel sounds are positive nontender nondistended Extremities no clubbing cyanosis or edema Hospital course patient is a 49-year-old with fevers patient was pancultured started on IV antibiotics patient is morbidly obese. Patient has a left nephrolithiasis 3 mm. I consulted with Dr. Louise she says patient is stable to be discharged home and would require an outpatient follow up. Patient advised to increase p.o. fluid intake as well as I ordered Flomax for her to help pass the stone. Patient is asymptomatic vital signs are stable. *Problems/Diagnosis: (1) Hydronephrosis with urinary obstruction due to renal calculus Total Time Spent on D/C: > 30 Minutes Date of Service: Dec 06, 2024 Billing Provider: MICK SINGH MD Common Visit Codes: 79962-EPT/OBS DISCH DAY >30min MICK SINGH MD Dec 05, 2024 17:47
[2024-12-05 18:00] VITALS: BP 141/63; PULSE 95; RESP 16; O2SAT 98
[2024-12-05] MEDS: hydroxychloroquine 200mg tablet PO SCH (19:50)
[2024-12-05] MEDS: busPIRone 15mg tablet PO SCH (19:50)
[2024-12-05] MEDS: gabapentin 300mg capsule PO SCH (19:51)
[2024-12-05] MEDS: quetiapine 100mg tablet PO SCH (19:55)
[2024-12-05] MEDS: metFORMIN 500mg tablet PO SCH (19:55)
[2024-12-05 20:00] VITALS: RESP 16; O2SAT 98
[2024-12-05] MEDS: insulin glargine (Lantus) pen - multi-dose SQ SCH (20:06)
[2024-12-05 22:00] VITALS: BP 152/63; PULSE 97; RESP 15; TEMP 98.6; O2SAT 96
[2024-12-05 23:13] VITALS: BP 152/75; PULSE 102
[2024-12-05] MEDS: cloNIDine 0.1 mg tablet PO PRN (23:13)
[2024-12-06 05:44] LABS: BASOPHILS % (AUTO) 0.5 % (0-1); EOSINOPHILS # (AUTO) 0.1 X10'3 (0-0.9); EOSINOPHILS % (AUTO) 2.2 % (0-6); HEMATOCRIT 32.5 % (35.0-45.0); HEMOGLOBIN 10.6 g/dl (12.0-16.0); LYMPHOCYTES # (AUTO) 1.2 X10'3 (1.1-4.8); LYMPHOCYTES % (AUTO) 23.8 % (21-51); MEAN CORPUSCULAR HEMOGLOBIN 25.1 PG (27.0-31.0); MEAN CORPUSCULAR HGB CONC 32.6 g/dL (33.0-36.5); MEAN CORPUSCULAR VOLUME 76.9 FL (78-98); MEAN PLATELET VOLUME 8.8 FL (7.4-10.4); MONOCYTES # (AUTO) 0.6 X10'3 (0-0.9); MONOCYTES % (AUTO) 12.2 % (2-12); NEUTROPHILS # (AUTO) 3.2 X10'3 (1.8-7.7); NEUTROPHILS % (AUTO) 61.3 % (42-75); PLATELET COUNT 131 X10'3 (140-440); RED BLOOD COUNT 4.23 X10'6 (4.20-5.60); RED CELL DISTRIBUTION WIDTH 16.6 % (11.5-14.5); WHITE BLOOD COUNT 5.2 X10'3 (4.5-11.0)
[2024-12-06 05:58] LABS: % IRON SATURATION 8 % (11-46); IRON 25 UG/DL (49-151); TOTAL IRON BINDING CAPACITY 321 UG/DL (259-388)
[2024-12-06 06:00] VITALS: BP 177/83; PULSE 107; RESP 16; TEMP 97.6; O2SAT 99
[2024-12-06 06:10] LABS: ALANINE AMINOTRANSFERASE 26 U/L (12-78); ALBUMIN/GLOBULIN RATIO 0.9 (1.1-1.5); ALKALINE PHOSPHATASE 120 IU/L (46-116); ANION GAP 8 (8-16); ASPARTATE AMINO TRANSFERASE 20 U/L (10-37); BILIRUBIN,TOTAL 0.6 MG/DL (0.1-1.0); BLOOD UREA NITROGEN 3 MG/DL (7-18); BUN/CREATININE RATIO 3.8 (10.0-20.0); CALCIUM 8.6 MG/DL (8.5-10.1); CHLORIDE 104 MMOL/L (99-107); FERRITIN 45 NG/ML (8-252); GLUCOSE 273 MG/DL (70-104); MAGNESIUM 1.7 MG/DL (1.5-2.4); POTASSIUM 3.8 MMOL/L (3.5-5.1); SODIUM 142 MMOL/L (135-145); TOTAL CARBON DIOXIDE 30.5 MMOL/L (24-32); TOTAL PROTEIN 6.3 G/DL (6.4-8.2); eCRCL 100 ML/MIN; eGFR 76 ML/MIN
[2024-12-06 08:00] VITALS: RESP 18; O2SAT 98
[2024-12-06] MEDS ORDERED: pantoprazole 40mg Tablet.DR PO SCH (08:00)
[2024-12-06] MEDS: clopidogrel 75mg tablet PO SCH (08:22)
[2024-12-06] MEDS: atorvastatin 20mg tablet PO SCH (08:22)
[2024-12-06] MEDS: cholecalciferol (vitamin D3) 1,000 unit (25mcg) tablet PO SCH (08:23)
[2024-12-06] MEDS: metoprolol succinate 25mg (24-HOUR) SR. Tablet PO SCH (08:24)
[2024-12-06 08:26] VITALS: RESP 15
[2024-12-06] MEDS: duloxetine 30mg CAPSULE.DR PO SCH (08:50)
[2024-12-06] MEDS: INSULIN LISPRO 100 UNIT/ML INSULN.PEN MULTI-DOSE SQ SCH (08:54)
--- NOTE | 2024-12-08 11:09 | PROGRESS NOTE ---
Daily Progress Note Providers to CC Late entry for 12/05/2024 as the original note got canceled by mistake ~ Antibiotic Timeout Antibiotic Ordered?: Yes Subjective Chief complaint none Review of systems negative for all 10 systems reviewed Objective Vital Signs Date Time Temp Pulse Resp B/P (MAP) Pulse Ox O2 Delivery O2 Flow Rate FiO2 12/06/24 08:26 15 12/06/24 08:00 98 Bi-pap/CPAP 3.0 40 12/06/24 06:00 97.6 107 177/83 (114) Result Diagram: 12/06/24 0453 12/06/24 0453 Patient is alert and oriented x3 no acute distress lying down comfortably speaking in full sentences CVS first and second heart sounds are regular rate rhythm no murmurs gallops or rubs Respiratory system is clear to auscultate bilaterally no rales rhonchi crackles or wheezing Abdomen is soft bowel sounds are positive nontender nondistended morbidly obese Extremities no clubbing cyanosis or edema Problem\Assessment\Plan Problems/Diagnosis: (1) Hydronephrosis with urinary obstruction due to renal calculus 1) Hydronephrosis with urinary obstruction due to renal calculus Additional Plan # intractable left sided abdominal and flank pain Secondary to renal colic CT scan shows 3 mm obstructive calculus in the left proximal ureter with mild hydronephrosis UA with culture and sensitivity negative so far IV Rocephin Filter all urine for stone analysis IV Dilaudid for pain management # [id number] diabetes mellitus out of control we will increase the Lantus from 10-20 and increase the insulin sliding scale from moderate to severe # hypertension out of control maybe secondary to pain monitor # lupus Awaiting med reconciliation # hyperlipidemia Awaiting med reconciliation # mild microcytic anemia Iron studies # hypokalemia Potassium replacement protocol # DVT prophylaxis SCDs and SQ Lovenox Plan DC home in a.m. I spoke to Dr. Louise Date of Service: Dec 05, 2024 Billing Provider: MICK SINGH MD Common Visit Codes: [id number] INP/OBS CARE(HIGH) MICK SINGH MD Dec 08, 2024 11:09
== END 2024-12-06 11:07 | disposition home or self-care (01) | DRG 690 ==
LOC: ER 02:19 → ED HOLD 08:25 → ORTHO 4S 11:36
PROVIDERS: ADMIT Family Medicine; ATTEND Family Medicine
PROC: 5A09357 Assistance with Respiratory Ventilation, Less than 24 Consecutive Hours, Continuous Positive Airway Pressure (ICD-10-PCS; principal; 2024-12-04)
DX: N13.6 Pyonephrosis (principal); Z68.44 Body mass index [BMI] 60.0-69.9, adult; E87.6 Hypokalemia; M79.7 Fibromyalgia; E78.5 Hyperlipidemia, unspecified; E11.9 Type 2 diabetes mellitus without complications; I10 Essential (primary) hypertension; E66.01 Morbid (severe) obesity due to excess calories; G43.909 Migraine, unspecified, not intractable, without status migrainosus; R31.9 Hematuria, unspecified; D50.9 Iron deficiency anemia, unspecified; Z79.899 Other long term (current) drug therapy; Z87.891 Personal history of nicotine dependence; Z88.0 Allergy status to penicillin; Z90.49 Acquired absence of other specified parts of digestive tract; Z90.710 Acquired absence of both cervix and uterus; Z88.2 Allergy status to sulfonamides; Z88.5 Allergy status to narcotic agent; Z88.1 Allergy status to other antibiotic agents; Z79.4 Long term (current) use of insulin; Z79.84 Long term (current) use of oral hypoglycemic drugs
CPT/HCPCS: 36415; 71045; 74176; 80048; 80053; 81001; 82607; 82728; 82948; 83036; 83540; 83550; 83605; 83735; 84484; 85025; 87081; 87088; 93005; 94760; 96365; 96366; 96372; 96375; 96376; 99285; A4615; G0378; J0696; J1171; J1650; J1815; J2405; J3010; J7030; J7500